=== PATIENT | male | born 1980 | race African-American/Black ===

== ENCOUNTER 2022-06-09 07:32 | Emergency (ER) | payer SELFPAY ==
[~2022-06-09] VITALS: Ht 182.9 cm; Wt 81.6 kg
[2022-06-09 07:35] VITALS: BP 154/86
--- NOTE | 2022-06-09 08:44 | NUR ---
PT SEEN AND EXAMINED BY DR SIMENTAL. PT DENIES ANY MEDICAL COMPLAINT. REQUESTING TO BE DISCHARGE SO HE CAN COLLECT HIS BELONGINGS. WAS PROVIDED W/ MEAL TRAY AND CLOTHES. AMBULATORY W/ STEADY GAIT. D/C IN STABLE CONDITION.
== END 2022-06-09 08:48 | disposition home or self-care (01) ==
LOC: ER 07:43
DX: Z00.00 Encounter for general adult medical examination without abnormal findings (principal)